=== PATIENT | male | born 1995 | race Caucasian/White ===

== ENCOUNTER 2024-08-14 18:30 | Emergency (ER) | payer BC ==
[~2024-08-14] VITALS: Ht 175.3 cm; Wt 70.8 kg
[~2024-08-14 18:30] MED LIST: CEPHALEXIN500 MG PO; CHLORPROMAZINE25 MG PO; GUAIFENESIN-CO118 ML PO
[2024-08-14] MEDS ORDERED: ASPIRIN 81 MG CHEW PO ONE (18:45)
[2024-08-14 18:47] LABS: BASOPHILS 2.7 % (0-2); EOSINOPHILS 10.4 % (0-6); HEMATOCRIT 44.1 % (35.0-50.0); HEMOGLOBIN 15.3 g/dL (12.0-18.0); LYMPHOCYTES 19.8 % (24-44); MCH 30.1 (27-36); MCHC 34.8 g/dl (30-36); MCV 86.7 fl (81-99); MONOCYTES 6.9 % (0-12); NEUTROPHILS 60.2 % (39-80); PLATELET COUNT 242 K/uL (140-440); RBC 5.09 M/ul (4.3-5.7); RDW 13.3 (10.5-15.0)
[2024-08-14 19:07] LABS: ALBUMIN 4.5 g/dL (3.4-5.0); ALBUMIN/GLOBULIN RATIO 1.25 (1.1-2.4); BILIRUBIN, TOTAL 0.5 ng/dL (0.2-1.0); BUN/CREATININE RATIO 13.17 (6.0-28.6); CALCIUM 9.3 mg/dL (8.5-10.1); CREATININE, SERUM 1.29 mg/dL (0.70-1.30); MAGNESIUM 1.8 mg/dL (1.8-2.4); PROTEIN, TOTAL 8.1 g/dL (6.4-8.2)
[2024-08-14] MEDS ORDERED: KETOROLAC TROMETHAMINE 30 MG/ML VIAL IV ONE (19:15)
[2024-08-14 21:39] VITALS: BP 139/75
--- NOTE | 2024-08-14 21:54 | EKG ---
[facility] [address] [facility] [place], [place] [address] Signed Sinus rhythm with marked sinus arrhythmia Otherwise normal ECG No previous ECGs available Confirmed by Cj Salazar DO ([id number]) on 08/14/2024 9:53:46 PM Electronically Signed By: CJ SALAZAR DO 08/14/24 215 PATIENT NAME: TAYLERDINANUNOVAMSHI MAYORGA Electrocardiogram DATE OF : [birth year] PHYSICIAN: CJ SALAZAR DO REPORT #: [id number] REPORT IS CONFIDENTIAL AND NOT TO BE RELEASED WITHOUT AUTHORIZATION
== END 2024-08-14 21:44 | disposition home or self-care (01) ==
LOC: ED 18:30
PROVIDERS: Emergency Medicine
DX: R07.89 Other chest pain (principal); R00.2 Palpitations; I49.8 Other specified cardiac arrhythmias; F17.200 Nicotine dependence, unspecified, uncomplicated
CPT/HCPCS: 36415; 71045; 80053; 83735; 84484; 85025; 86140; 93005; 93010; 94799; 96374; 99285-25; A9270; J1885